=== PATIENT | female | born 1960 | race African-American/Black ===

== ENCOUNTER 2020-12-19 15:26 | Observation (INO) | payer BC, SELFPAY ==
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
[2020-12-19] MEDS ORDERED: Benzonatate 100 MG CAP ONE ×2 (18:00→18:04)
[2020-12-19] MEDS ORDERED: Senokot S 8.6-50 MG TAB PO PRN (18:02)
[2020-12-19] MEDS ORDERED: Acetaminophen 650 MG Suppository PR PRN (18:02)
[2020-12-19] MEDS ORDERED: Acetaminophen 325 MG TAB PO PRN (18:02)
[2020-12-19] MEDS ORDERED: Ondansetron ODT 4 MG TAB PO PRN (18:02)
[2020-12-19] MEDS ORDERED: Ondansetron PF 4 MG/2 ML Vial IVP PRN (18:02)
[2020-12-19] MEDS ORDERED: Benzonatate 100 MG CAP PO PRN (18:05)
[2020-12-19] MEDS: guaiFENesin ER 600 MG TAB PO SCH (21:51)
[2020-12-19] MEDS: Famotidine 20 MG TAB PO SCH (21:51)
[2020-12-19 22:16] VITALS: BMI 33.8
[2020-12-20 06:34] LABS: Hemoglobin 12.9 g/dL (12.0-16.0); Mean Corpuscular HGB CONC 32.5 g/dL (32.0-36.0); Mean Corpuscular Hemoglobin 29.8 pg (27.0-31.0); Mean Corpuscular Volume 91.7 fL (78.0-98.0); Mean Platelet Volume 7.6 fL (7.4-10.4); Platelet Count 429 thou/uL (130-400); RBC Distribution Width 11.7 % (11.5-14.5); Red Blood Cell (RBC) Count 4.33 mill/uL (4.20-5.40); White Blood Cell (WBC) Count 5.8 thou/uL (4.8-10.8)
[2020-12-20 06:44] LABS: Anion Gap 14 mmol/L (10-20); BUN (Urea Nitrogen) 11 mg/dL (9.8-20.1); Calc. Creatinine Clearance 96 mL/min (70-130); Calcium 8.8 mg/dL (7.8-10.44); Carbon Dioxide 26 mmol/L (22-29); Chloride 106 mmol/L (98-107); Glucose 122 mg/dL (70-105); Potassium 4.1 mmol/L (3.5-5.1); Sodium 142 mmol/L (136-145)
[2020-12-20] MEDS ORDERED: Dexamethasone 4 MG TAB PO SCH (08:00)
[2020-12-20] MEDS: guaiFENesin ER 600 MG TAB PO SCH (08:26)
[2020-12-20] MEDS: Famotidine 20 MG TAB PO SCH (08:26)
[2020-12-20] MEDS ORDERED: Zinc Sulfate 220 MG CAP PO SCH (09:00)
[2020-12-20] MEDS ORDERED: Enoxaparin Sodium 40 MG/0.4 ML SYRINGE SC SCH (09:00)
[2020-12-20] MEDS ORDERED: Ascorbic Acid 500 mg Chewable Tablet PO SCH (09:00)
[2020-12-20] MEDS ORDERED: Cholecalciferol 1,000 UNITS (25 MCG) TAB PO SCH (09:00)
--- NOTE | 2020-12-20 09:00 | PDOC.HOSPP ---
- Subjective Encounter Date: 12/20/20 Encounter Time: 12:00 Subjective: Patient sitting up in chair and appearing comfortable on 2 L nasal cannula. She reports that she still has some cough and a little bit of phlegm hanging in her throat but otherwise feels well. She is ready to go home if she can get some home oxygen. - Objective Vital Signs & Weight: Vital Signs (12 hours) Temp Pulse Resp BP Pulse Ox 12/20/20 08:00 97.5 F L 74 16 118/76 98 12/20/20 06:27 97.5 F L 74 20 138/84 98 12/20/20 01:18 97.5 F L 74 18 133/77 98 12/19/20 22:00 97.9 F 74 18 149/92 H 98 Weight Weight 191 lb Result Diagrams: 12/20/20 05:38 12/20/20 05:38 Hospitalist ROS - Review of Systems Constitutional: denies: fever, chills Respiratory: reports: cough. denies: shortness of breath, SOB with excertion Cardiovascular: denies: chest pain, palpitations Gastrointestinal: denies: nausea, vomiting, abdominal pain - Medication Medications: Active Medications Generic Name Dose Route Start Last Admin Trade Name Freq PRN Reason Stop Dose Admin Ascorbic Acid 1,000 mg 12/20/20 09:00 12/20/20 08:26 Ascorbic Acid 500 Mg Chewable Tablet PO 1,000 mg DAILY FRANCISCA Administration Cholecalciferol 1,000 units 12/20/20 09:00 12/20/20 08:26 Cholecalciferol 1,000 Units (25 Mcg) Tab PO 1,000 units DAILY FRANCISCA Administration Dexamethasone 6 mg 12/20/20 08:00 12/20/20 08:26 Dexamethasone 4 Mg Tab PO 6 mg [facility] FRANCISCA Administration Enoxaparin Sodium 40 mg 12/20/20 09:00 12/20/20 08:26 Enoxaparin Sodium 40 Mg/0.4 Ml Syringe SC 40 mg 0900 FRANCISCA Administration Famotidine 20 mg 12/19/20 21:00 12/20/20 08:26 Famotidine 20 Mg Tab PO 20 mg BID FRANCISCA Administration Guaifenesin 1,200 mg 12/19/20 21:00 12/20/20 08:26 Guaifenesin Er 600 Mg Tab PO 1,200 mg Q12HR FRANCISCA Administration Zinc Sulfate 220 mg 12/20/20 09:00 12/20/20 08:26 Zinc Sulfate 220 Mg Cap PO 220 mg DAILY FRANCISCA Administration Hospitalist Exam Vitals: Vital Signs (12 hours) Temp Pulse Resp BP Pulse Ox 12/20/20 08:00 97.5 F L 74 16 118/76 98 12/20/20 06:27 97.5 F L 74 20 138/84 98 12/20/20 01:18 97.5 F L 74 18 133/77 98 12/19/20 22:00 97.9 F 74 18 149/92 H 98 Weight Weight 191 lb General Appearance: NAD, awake alert ENT: moist mucosa Heart: RRR, no murmur, no gallops, no rubs Respiratory: no wheezes, no ronchi Respiratory - other findings: Few Rales in the bases Gastrointestinal: soft, non-tender, non-distended, normal bowel sounds Extremities: no edema Psychiatric: normal affect, normal behavior, A&O x 3 Hosp A/P - Plan Acute respiratory failure with hypoxia We will give oxygen and titrate as needed Patient has very low oxygen requirement, can probably be discharged home whenever home oxygen can be arranged COVID-19 pneumonia Continue dexamethasone 6 mg daily No evidence of bacterial infection so we will discontinue other antibiotics We will start vitamin D, vitamin C, and zinc supplementation Patient is more than a week from her initial infectious symptoms so not really a remdesivir candidate. She is not at a high risk of decompensation anyway without any chronic medical problems and less than age 65. DVT prophylaxis: We will give Lovenox subcu twice a day GI prophylaxis: Pepcid twice a day CODE STATUS: I did discuss this with the patient. She is a full code. Should she be incapacitated her children be her medical decision makers, especially her daughter Freya Dickens. Disposition: DC home on home oxygen today.
[2020-12-20 09:24] LABS: Band 15 % (5-11); Lymphocytes 26 % (21-51); MDiff Complete? YES; Monocytes 5 % (0-10); Neutrophil 51 % (42-75); Platelet Morphology Comment Appears Increased; Polychromasia SLIGHT = 2-3 cells (100X) (0-2/hpf); Reactive Lymphocytes 3 % (0-10)
[2020-12-20 15:49] VITALS: BP 137/85; TEMP 97.7
--- NOTE | 2020-12-20 16:02 | PDOC.DS.DS ---
Provider Date of Admission: 12/19/20 16:37 Date of Discharge: 12/20/20 Admitting Provider: Jose Soto MD Consultations: None Primary Care Physician: NO PCP PROVIDER Course Hospital Course: This is a 60-year-old -[place] female without significant past medical history who came in with a few day history of shortness of breath after viral symptoms last week. She was found to be room air hypoxic and positive for COVID-19. She was put on 2 L nasal cannula oxygen and is feeling much better. Her room air sats are still low and so she is being set up with home oxygen and then will go home after that. Patient does have elevated inflammatory markers so we will send her home on a full 10-day course of dexamethasone. Resuscitation Status: 12/19/20 18:02 Resuscitation Status Routine Resuscitation Status: FULL: Full Resuscitation Discussed with: Patient Lab Results: 12/20/20 05:38 12/20/20 05:38 Abnormal Lab Results - Last 48 hrs 12/20/20 05:38: Plt Count 429 H, Band Neuts % (Manual) 15 H, Plt Morphology Comment Appears Increased H 12/20/20 05:38: C-Reactive Protein 4.66 H 12/20/20 05:38: Ferritin 1066.49 H 12/20/20 05:38: D-Dimer 0.66 H Vitals: Vital Signs (12 hours) Temp Pulse Resp BP BP Pulse Ox 12/20/20 15:35 97.7 F 86 20 137/85 92 L 12/20/20 11:54 98.1 F 92 17 134/84 86 L 12/20/20 08:00 97.5 F L 74 16 118/76 98 12/20/20 06:27 97.5 F L 74 20 138/84 98 Weight Weight 191 lb Physical Exam: The patient was seen and examined on the day of discharge. Problem Assessment: Acute respiratory failure with hypoxia COVID-19 pneumonia Plan of Treatment: Patient still with elevated inflammatory markers but otherwise doing well with just 2 L of oxygen. Will discharge home on home oxygen and continue steroids for a full 10-day course. Time Spent in discharge related activities (mins): 25 Plan Prescriptions: Dexamethasone [Decadron] 6 mg PO QAM-WM #8 tab guaiFENesin ER [Mucinex] 1,200 mg PO Q12HR #20 tab Benzonatate [Tessalon] 200 mg PO TIDPRN PRN #30 cap PRN Reason: Cough Home Medications: Medication Instructions Recorded Confirmed Type Benzonatate [Tessalon] 200 mg PO TIDPRN PRN #30 cap 12/20/20 Rx Dexamethasone [Decadron] 6 mg PO QAM-WM #8 tab 12/20/20 Rx guaiFENesin ER [Mucinex] 1,200 mg PO Q12HR #20 tab 12/20/20 Rx Allergies: codeine Allergy (Verified 12/19/20 22:26) Activity:: Activity as Tolerated Nourishment:: Regular Diet Therapies:: Not Applicable Equipment/Supplies:: Oxygen (2L [place] O2) IV Therapy:: Not Applicable Referrals: [facility] [Outside] PROVIDER,NO PCP [Primary Care Provider] - 2-3 Weeks Disposition: HOME Quality CORE MEASURES:: N/A
== END 2020-12-20 15:38 | disposition home or self-care (01) ==
LOC: ERS 15:26 → T4-B 16:37
PROVIDERS: ADMIT Emergency Medicine; ATTEND Emergency Medicine
DX: U07.1 COVID-19 (principal); J12.82 Pneumonia due to coronavirus disease 2019; J96.01 Acute respiratory failure with hypoxia; Z85.41 Personal history of malignant neoplasm of cervix uteri; Z88.5 Allergy status to narcotic agent
CPT/HCPCS: 36415; 80048; 82728; 85025; 85379; 86140; 96372; 99285; G0378; J1650; J8540